=== PATIENT | female | born 1995 | race Caucasian/White ===

== ENCOUNTER 2017-07-27 17:08 | Emergency (ER) | payer MEDICAID ==
[~2017-07-27] VITALS: Ht 152.4 cm; Wt 78.9 kg
[~2017-07-27 17:08] MED LIST: CIPRO500 MG PO; IBUPROFEN 800800 M1 PO; PYRIDIUM100 M1 PO; ZOFRAN ODT4 MG PO
[2017-07-27 17:54] LABS: INFLUENZA A ANTIGEN None Detected (None Detect)
[2017-07-27 19:08] VITALS: BP 113/68
== END 2017-07-27 19:10 | disposition home or self-care (01) ==
LOC: M.ERS 17:08
PROVIDERS: Physician Assistant
DX: J11.1 Influenza due to unidentified influenza virus with other respiratory manifestations (principal)

== ENCOUNTER 2017-08-28 21:46 | Emergency (ER) | payer OTHER, MEDICAID ==
[~2017-08-28] VITALS: Ht 165.1 cm; Wt 79.4 kg
[2017-08-28] MEDS ORDERED: SUPRAX400 M1 PO (23:28)
[2017-08-28] MEDS ORDERED: AZITHROMYCIN 2250 MG PO (23:28)
[2017-08-28] MEDS ORDERED: PREDNISONE 20 M20 MG PO (23:28)
[2017-08-29 00:01] VITALS: BP 116/81
== END 2017-08-29 00:03 | disposition home or self-care (01) ==
LOC: M.ERS 21:46
DX: J02.9 Acute pharyngitis, unspecified (principal)